=== PATIENT | female | born 1975 | race Caucasian/White ===

== ENCOUNTER → 2018-08-21 | Outpatient (CLI) | payer OTHER | LOC: RAD 15:57 | DX: J84.10 Pulmonary fibrosis, unspecified (principal) ==

== ENCOUNTER → 2018-09-14 | Outpatient (CLI) | payer OTHER | LOC: ULTRA 09:11 | DX: K80.20 Calculus of gallbladder without cholecystitis without obstruction (principal); K76.0 Fatty (change of) liver, not elsewhere classified ==

== ENCOUNTER → 2019-06-08 | Outpatient (CLI) | payer OTHER ==
--- NOTE | 2019-06-21 07:28 | SLE ---
[facility] [place] [address] POLYSOMNOGRAPHY STUDY Name: LIZZETH GREENWOOD Room #: REG [facility]#: [id number] Admission: 06/08/19 Attend Phys: Johnny Chang MD Discharge: Date of : 77 Report #: [id number] THIS REPORT FOR: //name// CC: Johnny ENCARNACION MD DATE OF SERVICE: 06/08/2019 ATTENDING PHYSICIAN: Dr. Carlos Encarnacion. The patient is a 43-year-old who weighs 155 pounds with a BMI of 30.3. The patient has history of mild sleep apnea for which she has been on auto CPAP at a pressure range of 10-20. The patient also was on Lamictal and Effexor. The patient has been having persistent daytime somnolence despite effective use of CPAP. During a recent download, the CPAP pressure appeared to be effective and the patient's average pressure was 13 with a maximum of 18. As a result, the patient was referred back for another titration study. During the night study, the patient spent 765 minutes in bed and slept for 597 minutes with a sleep efficiency of 78%. Sleep latency was 15.9 minutes with a REM latency of 482 minutes. Overall, sleep architecture showed increased stage 1 and stage 2 sleep, absent slow wave and reduced REM sleep, which was 15% of total sleep time. EKG monitoring revealed an average heart rate of 61 beats per minute. No sustained arrhythmias observed. PLMS were seen at an index of 24 per hour, but only 4 per hour caused EEG arousals. The patient was started on CPAP at a pressure of 8 cm of water and the pressure was titrated up to 20 cm water. The patient did very well at all the pressures. However, at a pressure of 17 cm of water, the patient had 82 minutes of sleep. The patient's AHI was 3.6 per hour. No REM sleep was observed at that pressure. The patient's REM sleep was seen only at the final pressure of 20 cm of water. At that pressure, the patient slept for 322 minutes with 87 minutes of REM sleep. The patient also had supine sleep for an extended period of time. The patient's AHI was 1 per hour with oxygen saturation of above 91%. IMPRESSION: 1. Sleep apnea diagnosed by previous sleep study. 2. [id number] PLMS. RECOMMENDATIONS: 1. CPAP at a pressure of 20 cm water completely eliminated the patient's sleep [facility] [address] [place] [address] POLYSOMNOGRAPHY STUDY Name: LIZZETH GREENWOOD [id number] Admission: 06/08/19 Attend Phys: Johnny Chang MD Discharge: Date of : 77 Report #: [id number] apnea and should be used on a nightly basis. At this pressure, the patient had very long REM sleep as well as supine sleep. The patient did very well at lower pressures as well, but had no REM sleep. 2. Follow up in 4-6 weeks to assess compliance and to document clinical improvement. 3. If the patient continues to have persistent hypersomnia despite using a new fixed CPAP pressure, then consider the effect of medications. The patient is on Lamictal and Effexor. Alternatively, the patient can also be tried on stimulant medication to see any improvement in symptoms. 4. PLMS does not need to be treated unless the patient has symptoms of restless legs during the day. 5. Cautioned regarding driving until the patient's hypersomnia is completely resolved with the above recommendations. <ELECTRONICALLY SIGNED> By: Johnny Chang MD 06/21/19 0728 [id number] Johnny Chang MD /nt
== END ==
LOC: SLEEPLAB 14:18
DX: G47.33 Obstructive sleep apnea (adult) (pediatric) (principal); G47.19 Other hypersomnia

== ENCOUNTER → 2020-08-03 | Outpatient (CLI) | payer OTHER | LOC: ULTRA 10:44 | PROVIDERS: ATTEND Family Medicine | DX: K76.0 Fatty (change of) liver, not elsewhere classified (principal); R94.5 Abnormal results of liver function studies; K80.20 Calculus of gallbladder without cholecystitis without obstruction ==

== ENCOUNTER 2021-01-31 08:55 | Inpatient (IN) | payer OTHER ==
[~2021-01-31] VITALS: Ht 152.4 cm; Wt 54.4 kg
[2021-01-31 09:02] VITALS: BP 110/70
[2021-01-31] MEDS ORDERED: LAMICTAL150 MG PO (09:05)
[2021-01-31] MEDS ORDERED: DESVENLAFAXINE50 MG PO (09:06)
[2021-01-31] MEDS ORDERED: LIPITOR10 MG PO (09:06)
[2021-01-31] MEDS ORDERED: DUPIXENT300 MG/2 M SUBQ (09:07)
[2021-01-31] MEDS ORDERED: TRAZODONE HCL50 MG PO (09:07)
[2021-01-31 09:35] LABS: ABSOLUTE NEUTROPHILS 6.7 thou/uL (1.4-8.2); BASOPHILS 0.3 % (0.0-2.0); HEMATOCRIT 39.7 % (37.0-47.0); HEMOGLOBIN 13.1 gm/dL (12.0-15.0); LYMPHOCYTES 16.1 % (24.0-44.0); MCH 29.4 pg (26.0-34.0); MCHC 33.1 g/dL (28.0-37.0); MCV 88.9 fL (80.0-100.0); MONOCYTES 8.1 % (1.0-8.0); PLATELET COUNT 321 thou/uL (150-400); POLYS 74.5 % (36.0-66.0); RBC 4.46 mil/uL (4.20-5.00); RDW 14.7 % (10.5-14.5)
[2021-01-31 09:42] LABS: CALCIUM 9.4 mg/dL (8.5-10.1); CREATININE 0.9 mg/dL (0.6-1.0)
[2021-01-31 09:44] LABS: POTASSIUM 3.8 mmol/L (3.5-5.1)
[2021-01-31 09:48] LABS: ALBUMIN 3.8 g/dL (3.4-5.0); TOTAL BILIRUBIN 0.4 mg/dL (0.2-1.0); TOTAL PROTEIN 7.8 g/dL (6.4-8.2)
--- NOTE | 2021-01-31 11:03 | NUR ---
CLARIFIED WITH DR LYNN, PT IS NOT SURGICAL AT THIS TIME SO HE DOES NOT PLAN ON ORDERING A PRE-OP COVID SWAB OR A SURGERY CONSULT
[2021-01-31 11:07] VITALS: BP 107/48
[2021-01-31 11:20] VITALS: BP 96/51
[2021-01-31 12:23] VITALS: BP 110/69
--- NOTE | 2021-01-31 13:41 | NUR ---
ASSESSMENT: CM REVIEWED CHART AND MET WITH PATIENT. PT WAS ADMITTED WITH SBO AND IS ON IV FLUIDS/ANTIEMETICS. PT REPORTS THAT SHE LIVES IN AN APT ALONE. PT REPORTS THAT SHE IS FULLY INDEPENDENT WITH ADLS AND AMBULATION. PT REPORTS NO HX OF HH OR SNF IN THE PAST. PT DOES NOT ANTICIPATE HAVING ANY NEEDS FROM CM. CM WILL CONTINUE TO FOLLOW TO ASSIST NEEDED.
--- NOTE | 2021-01-31 18:30 | NUR ---
PT RECEIVED FROM THE ER AT 1215 ALERT AND IN NO ACUTE DISTRESS. ASSESSMENT COMPLETED AND PT ORIENTED TO UNIT. UP IN RECLINER MOST OF SHIFT. AMBULATING THE HALLS SOME. NOT WANTING TO TAKE NARCOTIC PAIN MEDS TO HELP SBO IMPROVE BETTER. ORDERS PER DR. HAYES.
[2021-01-31 19:37] VITALS: BP 100/55
[2021-01-31 19:38] LABS: CALCIUM 8.8 mg/dL (8.5-10.1); CREATININE 0.9 mg/dL (0.6-1.0); POTASSIUM 4.4 mmol/L (3.5-5.1)
--- NOTE | 2021-02-01 00:08 | NUR ---
MANOJ LADY.OBSERVED WALKING AROUND IN HALLWAYS AT START OF SHIFT.REQUESTED FOR ONLY TYLENOL FOR PAIN.AFEBRILE. USES CPAP AT NOC.PT NPO BUT TAKING MEDS WITH SMALL SIPS OF WATER.HEATING PAD IN PLACE AID WITH PAIN. NO FURTHER CONCERNS AT THIS TIME, PT CALLS APPROPRIATELY.
[2021-02-01 05:45] LABS: CALCIUM 8.3 mg/dL (8.5-10.1); CREATININE 0.8 mg/dL (0.6-1.0); POTASSIUM 4.1 mmol/L (3.5-5.1)
[2021-02-01 08:01] VITALS: BP 96/53
--- NOTE | 2021-02-01 11:29 | NUR ---
Assumed care of pt at 0700. Pt a&ox4. Up ad kelvin. Ambulating in the hallway. Denies pain. IVF infusing. On clear liquid diet. Tolerating well. Possible discharge later in the day. Will continue to monitor.
--- NOTE | 2021-02-01 13:44 | NUR ---
on-going assessment: CM REVIEWED CHART. PT IS A POSSIBLE DISCHARGE HOME TODAY IF SHE TOLERATES HER DIET. PT REPORTS SHE WILL HAVE NO NEEDS FROM CM.
[2021-02-01 16:45] VITALS: BP 96/53
[2021-02-01 17:13] VITALS: BP 99/64
== END 2021-02-01 18:17 | disposition home or self-care (01) | DRG 390 ==
LOC: ER 08:55 → 4S 10:46 → EROBS 10:46 → 4S 12:09
PROVIDERS: Emergency Medicine; ADMIT Family Medicine; ATTEND Family Medicine
DX: K56.600 Partial intestinal obstruction, unspecified as to cause (principal); F32.9 Major depressive disorder, single episode, unspecified; G40.909 Epilepsy, unspecified, not intractable, without status epilepticus; Z90.710 Acquired absence of both cervix and uterus; Z79.899 Other long term (current) drug therapy; Z88.8 Allergy status to other drugs, medicaments and biological substances; Z87.891 Personal history of nicotine dependence
CPT/HCPCS: 10195

== ENCOUNTER → 2021-02-13 | Outpatient (CLI) | payer OTHER ==
[~2021-02-13] MED LIST: DESVENLAFAXINE50 MG PO; DUPIXENT300 MG/2 M SUBQ; LAMICTAL150 MG PO; LIPITOR10 MG PO; TRAZODONE HCL50 MG PO
[2021-02-13 14:46] LABS: ABSOLUTE NEUTROPHILS 7.9 thou/uL (1.4-8.2); BASOPHILS 0.8 % (0.0-2.0); EOSINOPHILS 1.3 % (0.0-3.0); HEMATOCRIT 37.9 % (37.0-47.0); HEMOGLOBIN 12.9 gm/dL (12.0-15.0); LYMPHOCYTES 21.6 % (24.0-44.0); MCH 29.6 pg (26.0-34.0); MCV 87.3 fL (80.0-100.0); MONOCYTES 6.9 % (1.0-8.0); PLATELET COUNT 377 thou/uL (150-400); POLYS 69.4 % (36.0-66.0); RBC 4.34 mil/uL (4.20-5.00); RDW 14.5 % (10.5-14.5); WBC 11.4 thou/uL (4.0-11.0)
[2021-02-13 15:23] LABS: ALBUMIN 3.9 g/dL (3.4-5.0); CALCIUM 9.4 mg/dL (8.5-10.1); CREATININE 0.8 mg/dL (0.6-1.0); POTASSIUM 4.1 mmol/L (3.5-5.1); TOTAL BILIRUBIN 0.3 mg/dL (0.2-1.0); TOTAL PROTEIN 8.5 g/dL (6.4-8.2)
--- NOTE | 2021-02-13 17:32 | EKG ---
[address] [address] ELECTROCARDIOGRAM REPORT Name: LIZZETH GREENWOOD [id number] Admission: 02/13/21 Attend Phys: Costa Aguiar MD Discharge: Date of : 77 Report #: [id number] [facility] Test Date: 2021-02-13 Test Time: 14:40:42 Pat Name: LIZZETH GREENWOOD Department: Room: Gender: F Community Health Education Coordinator: ANGTWIN : 1975 Requested By: Costa Aguiar Order Number: [id number] MD: Casper Burkett Measurements Intervals [place] Rate: 69 P: 64 RI: 157 QRS: 24 QRSD: 93 T: 43 QT: 409 QTc: 438 Interpretive Statements Sinus rhythm No significant abnormality No previous ECG available for comparison Electronically Signed On 02-13-2021 17:32:01 CDT by Casper Burkett [email or web address] <ELECTRONICALLY SIGNED> By: Casper Burkett MD, [facility] 02/13/21 1732 1440 1440 Casper Burkett MD, FACC /EPI
== END ==
LOC: CV 14:09
PROVIDERS: ATTEND Otolaryngology Plastic Surgery within the Head & Neck
DX: G47.33 Obstructive sleep apnea (adult) (pediatric) (principal); R06.83 Snoring; Z78.9 Other specified health status

== ENCOUNTER → 2021-02-22 | Outpatient (CLI) | payer OTHER | LOC: LAB 07:53 | PROVIDERS: ATTEND Anesthesiology | DX: Z01.812 Encounter for preprocedural laboratory examination (principal); Z20.822 Contact with and (suspected) exposure to COVID-19 ==

== ENCOUNTER → 2021-04-24 | Outpatient (CLI) | payer OTHER ==
--- NOTE | 2021-04-30 17:34 | SLE ---
[facility] [place] [address] POLYSOMNOGRAPHY STUDY Name: LIZZETH GREENWOOD Room #: REG [facility]#: [id number] Admission: 04/24/21 Attend Phys: Johnny Chang MD Discharge: Date of : 77 Report #: [id number] THIS REPORT FOR: cc: Terrence White MD, Neal A. MD Khan, Aman U. MD ~ DOC #: [id number] cc: MD Johnny Bundy MD DATE OF SERVICE: 04/24/2021 SLEEP STUDY REFERRING PHYSICIAN: Dr. Costa Aguiar. The patient is 45 years old who weighs 115 pounds with a BMI of 22.5. The patient's Edna score was 5. The patient underwent diagnostic sleep study performed at [facility]. During the night study, the patient spent 429 minutes in bed and slept for 400 minutes with a normal sleep efficiency of 94%. Sleep latency was 7.8 minutes with a REM latency of 183 minutes. Sleep architecture showed normal stage I sleep, increased N2 sleep, normal N3 sleep and reduced REM sleep. During the night study, the patient had no apneas. The patient had 8 hypopneas. The patient's AHI was 1.2 per hour. REM AHI was 0 per hour, and a non-REM AHI of 1.4 per hour. The patient's supine AHI was 0 per hour. EKG monitoring revealed an average heart rate of 53 beats per minute. No sustained arrhythmias observed. PLMs were seen as an index of 31 per hour and 7 per hour caused EEG arousals. Nocturnal oximetry study revealed an average oxygen saturation of 96% with a lowest of 89%. Only 0.2 minutes were spent with oxygen saturation less than 89%. Due to low AHI, the patient did not meet the split night criteria for CPAP initiation. IMPRESSION: 1. No clinically significant sleep disordered breathing. The patient's AHI for the entire night was 1.2 per hour. 2. No clinically significant nocturnal hypoxia. 3. Moderate periodic limb movements. [facility] [address] [place] [address] POLYSOMNOGRAPHY STUDY Name: LIZZETH GREENWOOD [facility] [id number] Admission: 04/24/21 Attend Phys: Johnny Chang MD Discharge: Date of : 77 Report #: [id number] RECOMMENDATIONS: 1. The patient does not meet the split night criteria for CPAP initiation due to low AHI. 2. Avoid SET AND EXHIBIT DESIGNER depressants. 3. Caution regarding driving when sleepy or sleep deprived. 4. The patient has moderate PLMs. The patient should be further evaluated for symptoms of restless legs during the day. Johnny Chang MD AUK/DHI <ELECTRONICALLY SIGNED> By: Johnny Chang MD 04/30/21 1734 0403 0448 Johnny Chang MD /nt
== END ==
LOC: SLEEPLAB 10:52
PROVIDERS: ATTEND Internal Medicine Critical Care Medicine
DX: G47.61 Periodic limb movement disorder (principal); G47.33 Obstructive sleep apnea (adult) (pediatric); Z78.9 Other specified health status; Z68.22 Body mass index [BMI] 22.0-22.9, adult

== ENCOUNTER → 2021-08-31 | Outpatient (CLI) | payer OTHER | LOC: MRI 14:04 | PROVIDERS: ATTEND Family Medicine | DX: S83.512A Sprain of anterior cruciate ligament of left knee, initial encounter (principal); M17.12 Unilateral primary osteoarthritis, left knee; M71.22 Synovial cyst of popliteal space [Baker], left knee; M25.462 Effusion, left knee; X58.XXXA Exposure to other specified factors, initial encounter; Y93.89 Activity, other specified; Y92.89 Other specified places as the place of occurrence of the external cause; Y99.8 Other external cause status ==

== ENCOUNTER → 2021-12-14 | Outpatient (CLI) | payer OTHER ==
[2021-12-14 11:23] LABS: URINE BILIRUBIN NEGATIVE (Negative); URINE BLOOD NEGATIVE (Negative); URINE CLARITY CLEAR; URINE COLOR YELLOW; URINE GLUCOSE-RANDOM* NEGATIVE (Negative); URINE KETONES NEGATIVE (Negative); URINE LEUKOCYTES-REFLEX NEGATIVE (Negative); URINE NITRITE-REFLEX NEGATIVE (Negative); URINE PROTEIN (DIPSTICK) NEGATIVE (Negative); URINE UROBILINOGEN 0.2 E.U./dl (0.2-1.0)
[2021-12-14 11:25] LABS: ABSOLUTE NEUTROPHILS 2.6 thou/uL (1.4-8.2); BASOPHILS 0.8 % (0.0-2.0); EOSINOPHILS 3.5 % (0.0-3.0); HEMOGLOBIN 12.9 gm/dL (12.0-15.0); LYMPHOCYTES 42.1 % (24.0-44.0); MCH 31.1 pg (26.0-34.0); MCV 91.4 fL (80.0-100.0); MONOCYTES 8.5 % (1.0-8.0); PLATELET COUNT 267 thou/uL (150-400); POLYS 45.1 % (36.0-66.0); RBC 4.16 mil/uL (4.20-5.00); RDW 14.7 % (10.5-14.5); WBC 5.7 thou/uL (4.0-11.0)
[2021-12-14 11:31] LABS: CALCIUM 9.6 mg/dL (8.5-10.1); CREATININE 0.8 mg/dL (0.6-1.0); POTASSIUM 4.6 mmol/L (3.5-5.1)
[2021-12-14 11:56] LABS: INR 0.89; PROTIME 9.8 Seconds (10.5-12.1)
--- NOTE | 2021-12-14 15:33 | EKG ---
[place] [address] [employer] [address] ELECTROCARDIOGRAM REPORT Name: LIZZETH GREENWOODYARIEL [id number] Admission: 12/14/21 Attend Phys: Valeri Amor Discharge: Date of : 77 Report #: [id number] [facility] Test Date: 2021-12-14 Test Time: 11:17:09 Pat Name: LIZZETH GREENWOOD Department: Room: Gender: F Movie Theater Usher: PAOLA : 1975 Requested By: Pako Bragg Order Number: [id number] MD: Tristen Soares Measurements Intervals [place] Rate: 72 P: 59 MO: 170 QRS: 11 QRSD: 96 T: 44 QT: 398 QTc: 436 Interpretive Statements Sinus rhythm RSR' in V1 or V2, probably normal variant Compared to ECG 02/13/2021 14:40:42 RSR' in V1 or V2 now present Electronically Signed On 12-14-2021 15:33:45 GEAR SHAPER SET UP OPERATOR by Tristen Soares [email or web address] <ELECTRONICALLY SIGNED> By: Tristen Soares MD, [facility] 12/14/21 1533 16 16 Tristen Soares MD, [facility] /EPI
== END ==
LOC: CV 10:42
PROVIDERS: ATTEND Orthopaedic Surgery
DX: M13.862 Other specified arthritis, left knee (principal)